=== PATIENT | female | born 1990 | race Caucasian/White ===

== ENCOUNTER → 2024-06-05 13:23 | Outpatient (REF) | payer OTHER, SELFPAY ==
--- NOTE | 2024-06-05 13:57 | PN.DIAED06 ---
Meal Plan - Gestational
- Breakfast
Gestational Diabetes Meal Plan Name: 1800 calories
Breakfast - Total Carbohydrate (grams): 30
Breakfast - Starch Carbohydrate: 1
Breakfast - Fruit Carbohydrate: 0
Breakfast - Milk Carbohydrate: 1
Breakfast - Nonstarchy Vegetables: Yes
Breakfast - Meat/Protein: 1
Breakfast - Fat: 2
- Morning Snack
Morning Snack - Total Carbohydrate (grams): 30
Morning Snack - Starch Carbohydrate: 1
Morning Snack - Fruit Carbohydrate: 0
Morning Snack - Milk Carbohydrate: 1
Morning Snack - Nonstarchy Vegetables: Yes
Morning Snack - Meat/Protein: 0.5
Morning Snack - Fat: 0
- Lunch
Lunch - Total Carbohydrate (grams): 45
Lunch - Starch Carbohydrate: 2
Lunch - Fruit Carbohydrate: 1
Lunch - Milk Carbohydrate: 0
Lunch - Nonstarchy Vegetables: Yes
Lunch - Meat/Protein: 2
Lunch - Fat: 1
- Afternoon Snack
Afternoon Snack - Total Carbohydrate (grams): 30
Afternoon Snack - Starch Carbohydrate: 1
Afternoon Snack - Fruit Carbohydrate: 1
Afternoon Snack - Milk Carbohydrate: 0
Afternoon Snack - Nonstarchy Vegetables: Yes
Afternoon Snack - Meat/Protein: 1
Afternoon Snack - Fat: 0
- Dinner
Dinner - Total Carbohydrate (grams): 45
Dinner - Starch Carbohydrate: 2
Dinner - Fruit Carbohydrate: 0
Dinner - Milk Carbohydrate: 1
Dinner - Nonstarchy Vegetables: Yes
Dinner - Meat/Protein: 2
Dinner - Fat: 2
- Evening Snack
Evening Snack - Total Carbohydrate (grams): 30
Evening Snack - Starch Carbohydrate: 1
Evening Snack - Fruit Carbohydrate: 0
Evening Snack - Milk Carbohydrate: 1
Evening Snack - Nonstarchy Vegetables: Yes
Evening Snack - Meat/Protein: 1
Evening Snack - Fat: 1
--- NOTE | 2024-06-05 14:59 | PN.DE ---
Diabetes Education
- -
Tanika is currently 28 weeks (2nd ) and presented for medical nutrition therapy. She has a 2.5 year old son and she did not have gestational diabetes during that . 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
glucose metabolism and the effects of elevated blood glucose levels on the baby during and after . We discussed her increased risk for potentially developing type 2 diabetes in the future.
Tanika was able to demonstrate a fingerstick blood glucose with the [employer] Verio meter. We reviewed the monitoring schedule and glucose targets for fasting and 2 hour post meal. I provided her with written material on managing gestational
diabetes and highlighted target blood glucose ranges. Tanika is aware of contacting Sue at [facility] to review her numbers weekly.
Tanika has a good understanding of macronutrients and label reading. I provided her with a 1800 calorie gestational meal plan and reviewed it in detail. She currently eats smaller amounts of food at each sitting due to her history of GERD. She
mentioned she sometimes wakes up in the middle of the night to eat and I recommended she eat the bedtime snack to prevent eating overnight which will impact her fasting numbers.
We discussed physical activity and Tanika has no restrictions at this time. She has started walking and increasing her activity since learning about the gestational diabetes diagnosis. She was encouraged to reach out to the office with any
questions or if she should require insulin.
== END ==
LOC: DES 13:23
PROVIDERS: ATTENDING PHYSICIAN Obstetrics & Gynecology
DX: O24.419 Gestational diabetes mellitus in pregnancy, unspecified control (principal)
CPT/HCPCS: 99078

== ENCOUNTER → 2024-06-10 10:24 | Outpatient (REF) | payer OTHER, SELFPAY | LOC: PNTC 10:24 | PROVIDERS: ATTENDING PHYSICIAN Obstetrics & Gynecology | DX: O24.419 Gestational diabetes mellitus in pregnancy, unspecified control (principal) | CPT/HCPCS: 76816 ==

== ENCOUNTER 2024-08-28 04:00 | Inpatient (IN) | payer OTHER, SELFPAY ==
[2024-08-28 04:08] VITALS: BMI 26.6
[2024-08-28 04:22] VITALS: BP 101/77
[2024-08-28 04:40] LABS: Glucose - Point of Care 111 mg/dl (70-99)
[2024-08-28 04:55] LABS: % Basophils 0.2 % (0-2); % Eosinophils 0.3 % (0-6); % Immature Granulocytes 0.7 % (0-0.5); % Lymphocytes 10.3 % (20.5-51.1); % Monocytes 5.5 % (1.7-9.3); Absolute Immature Granulocytes 0.1 10^3/uL (0-0.05); Absolute Lymphocytes 1.4 10^3/uL (1.2-3.4); Absolute Monocytes 0.7 10^3/uL (0.1-0.6); Absolute Neutrophils 10.9 10^3/uL (1.4-6.5); Hematocrit 39.7 % (37.0-47.0); Hemoglobin 13.8 g/dL (12.0-16.0); Mean Corp Hgb Conc. 34.8 g/dL (33.0-37.0); Mean Corpuscular Hgb 29.4 pg (27.0-31.0); Mean Corpuscular Volume 84.6 fL (81.0-99.0); Mean Platelet Volume 10.4 fL (7.4-10.4); Nucleated Red Blood Cells % 0 %; Platelet Count 179 10^3/uL (130-400); Red Blood Cell Count 4.69 10^6/uL (4.20-5.40); Red Cell Dist. Width 16.5 % (11.5-14.5); White Blood Cell Count 13.1 10^3/uL (4.8-10.8)
[2024-08-28] MEDS: ANCEF 10 IV ×2 (05:09→23:05)
[2024-08-28 08:38] LABS: Glucose - Point of Care 116 mg/dl (70-99)
[2024-08-28] MEDS: ANCEF 5 IV ×2 (11:25→19:35)
[2024-08-28] MEDS: LR 1000 IV ×3 (12:29→22:54)
[2024-08-28 12:41] LABS: Glucose - Point of Care 90 mg/dl (70-99)
[2024-08-28] MEDS: FENTANYL/BUPIVACAINE 100 EPIDURAL ×2 (13:21→20:18)
[2024-08-28] MEDS: SUBLIMAZE 100 MCG EPIDURAL (13:21)
[2024-08-28 16:40] LABS: Glucose - Point of Care 86 mg/dl (70-99)
[2024-08-28] MEDS: PITOCIN 30 UNITS/NSS 500 ML IV (20:20)
[2024-08-28 20:27] LABS: Glucose - Point of Care 80 mg/dl (70-99)
[2024-08-28] MEDS: BICITRA 30 ML PO (23:05)
[2024-08-28] MEDS: TYLENOL 1000 MG PO (23:05)
[2024-08-28] MEDS: ZITHROMAX INFUSION 250 IV (23:20)
[2024-08-28 23:56] LABS: Cord ABG Comment CORD BLOOD
[2024-08-28 23:57] LABS: B.E. Cord ABG -0.2 mMOL/L; HCO3 Cord ABG 24.8 mmol/L; O2 Saturation % Cord ABG 64.8 %; PCO2 Cord ABG 41 mmHg; PO2 Cord ABG 31 mmHg; pH Cord ABG 7.39
[2024-08-29] LABS: B.E. Cord ABG -2.2 mMOL/L; HCO3 Cord ABG 22.5 mmol/L; O2 Saturation % Cord ABG 65.9 %; PCO2 Cord ABG 38 mmHg; PO2 Cord ABG 32 mmHg; pH Cord ABG 7.38
--- NOTE | 2024-08-29 00:54 | OR.RPT ---
Operative Report
Operative Report
Procedure date: 08/28/2024
Preop diagnosis: IUP @39.6, category 2 tracing, GDMA1, history of prior , failed TOLAC
Postop diagnosis: same
Procedure: Repeat low transverse section
Surgeon: Cathy
Epidural: Epidural, Dr. Briseno
QBL: 780mL
Complications: none
Findings: Viable female born at 2338, Apgars 8/9, adhesions between fascia and rectus muscles, normal appearing uterus, bilateral fallopian tubes, and ovaries, bladder adhered to lower uterine segment taken down with Metzenbaum scissors and
blunt dissection, inferior extension on the left side of the hysterotomy, hysterotomy raw appearing on the left side after repair- Surgicel placed.
Velasquez catheter draining clear urine before and after the procedure
Indication: Patient is a 34yo @39.6 who presented to Labor and Delivery with complaints of contractions. She was 1cm on admission. Patient was expectantly managed and progressed to 3-4cm. She then got an epidural. After the epidural, she
spontaneously ruptured for clear fluid. She was 4cm and a forebag was artificially ruptured for clear fluid. After a few hours, her contractions had spaced out and she had not made any cervical change. Pitocin was started. After Pitocin was started,
tracing had variable decelerations with each contraction. She was repositioned and given a fluid bolus without resolution. Pitocin was stopped and the variable decelerations continued. Cervical exam remained unchanged. At this time, repeat
section was recommended. Patient had previously signed consents in the office. Ancef 2g and Azithromycin 500mg IV were ordered for antibiotic prophylaxis. Anesthesia was notified.
Procedure: Patient was taken to the operating room where epidural anesthesia was bolused and found to be adequate. 2g of Ancef and 500mg Azithromycin given for antibiotic prophylaxis. The abdomen was prepped with ChloraPrep. The patient was draped
in the normal sterile fashion. She was placed in the dorsal supine position with a left lateral tilt. A Pfannenstiel incision was made with a 10 blade and carried down to the fascia with a scalpel. Hemostasis achieved with Bovie. The fascia was
incised and dissected laterally with Lopez scissors. The superior aspect of the fascia was grasped with Mari clamps. The underlying rectus fascia was sharply dissected with Lopez scissors. In a similar fashion the inferior aspect of the fascia was
elevated with Mari clamps and the rectus muscle was dissected off with Lopez scissors. The rectus muscles were down the midline to the level of the pubic symphysis with manual dissection. The peritoneum was bluntly entered and extended
using manual traction and Metzenbaum scissors.
Velazquez retractor and bladder blade were placed revealing good visualization of the bladder. The bladder was adhered to the lower uterine segment. A bladder flap was developed and the bladder was dissected off using manual dissection and
Metzenbaum scissors. A thin lower uterine segment was noted. The lower uterine segment was incised with a scalpel. Clear fluid noted at entry into the cavity. The uterine incision was extended bluntly with lateral and upward traction.
The fetus was in cephalic presentation. The head was elevated out of the pelvis with special attention paid to avoid using the uterine incision as a fulcrum. Gentle fundal pressure was applied one the head was brought to the incision. The head
delivered through the hysterotomy and the rest of the delivered without difficulty. Delayed cord clamping was performed. Cord gases were collected. The infant was handed off to the floorperson. IV oxytocin was started to facilitate uterine
contractions. The placenta delivered with fundal massage and gentle traction. The uterus was exteriorized. Allis clamps were placed at the apices of the hysterotomy. The inside of the uterus was wiped with a lap sponge to assure complete removal of
placental membranes. Fundal massage was performed and uterus noted to be firm. There was brisk bleeding from the left side of the hysterotomy. An inferior extension was identified and repaired in a running locked fashion with 0 Vicryl. The uterine
incision was then closed with 0 Vicryl in a running locked fashion. A horizontal imbricating stitch was done on the hysterotomy. There was bleeding from the center of the hysterotomy and multiple figure of eights were placed with 0 Vicryl and 2-0
Vicryl to achieve hemostasis. Oozing noted from the serosa inferior to the hysterotomy and Bovie cautery was used to achieve hemostasis. The hysterotomy was inspected and noted to be hemostatic. The uterus was placed back in the abdomen. Blood clots
and fluid were wiped out of the abdomen and pelvis with moist laparotomy sponges. The hysterotomy was raw appearing on the left side near the extension. Surgicel was placed over the hysterotomy. The hysterotomy was examined again and noted to be
hemostatic. The bladder was inspected and noted to be intact.
The rectus muscles were inspected and noted to be hemostatic. The fascial layer was closed in a running continuous fashion using 0 Vicryl. The subcutaneous tissue was copiously irrigated and any small bleeding vessels were cauterized with Bovie
cautery. The subcutaneous tissue was reapproximated in a running continuous fashion with 2-0 Plain. The skin was closed with 4-0 Vicryl in a subcuticular fashion. The incision was covered with skin glue. The patient tolerated the procedure well. All
sponge and instrument counts were correct times two. The patient was taken to the recovery room in stable condition.
[2024-08-29] MEDS: TORADOL 15 MG IV ×4 (01:07→18:46)
--- NOTE | 2024-08-29 01:08 | HPS.HSE ---
Family Physician
-
Family Physician: Shreya Laird MD
Chief Complaint
-
contractions
History of Present Illness
HPI: Patient is a 34yo @39.6 who presented to Labor and Delivery with complaints of contractions. She has a history of one prior for non-reassuring heart tones and desires a trial of labor after section. She denied
vaginal bleeding or leakage of fluid. +FM.
complications:
- History of C/Sx1
- GBS positive
- GDMA1
PMHx: hypothyroid, migraine, insomnia
Meds: vitamin, magnesium
Surghx: C/Sx1, pilonidal cyst
All: Tdap, PCN
Socialhx: denies tobacco, etoh or illicit drug use
Famhx: non-contributory
OBHx: PLTCS for NRFHTs
labs: Blood type A+, Antibody screen negative, Rubella immune, RPR non reactive, NIPT negative, HbsAg/HIV/Hep B/Hep C-negative, GCCT - negative, GBS positive, elevated 1hr
Medical History
Past Medical History
Past Medical History: Reports Hypothyroidism
Past Surgical History: Reports
Additional Past Surgical History:
pilonidal cyst
Social History
Tobacco: Non-smoker
Alcohol: None
Drug: None
Family History
Family History: Not pertinent
Allergies / Home Medications
Allergies reflects when Allergies were last updated in [facility].
Home Medications with original date entered in [facility]
Allergy/Medication List:
All: PCN, Tdap
Meds: PNV, magnesium
Review of Systems
-
A 12 point ROS was completed and negative except as noted: Yes
Physical Exam
Vital Signs
Vital Signs
Temp Pulse Resp BP
97.6 F 92 18 101/77
08/28/24 04:22 08/28/24 04:22 08/28/24 04:22 08/28/24 04:22
Physical Exam
General: Well Developed and Well Nourished
HEENT: NormoCephalic
Respiratory: Non Labored Respirations
Cardiac: Regular Rhythm
Skin: Warm and Dry
Neuro: Awake and Alert
Psych: Calm
Laboratory Results
-
08/28/24 04:43
Impression/Plan
-
IMPRESSION:
Patient is a 34yo @39.6 labor, TOLAC, GDMA1, category 2 tracing
PLAN:
Patient was admitted and expectantly managed. She spontaneously ruptured for clear fluid and made change to 4cm. After a few hours, cervical exam remained unchanged and contractions had spaced out, so Pitocin was recommended. After Pitocin was
started, FHT was category 2 with variable decelerations with each contraction. She was repositioned and fluid bolus was given, however variable decelerations did not resolve. Pitocin was turned off and variables continued. Cervical exam was
unchanged. At this time, repeat section was recommended for category 2 tracing. Consents were previously signed in the office. Ancef 2g and azithromycin 500mg were ordered for antibiotic prophylaxis. Anesthesia was notified.
--- NOTE | 2024-08-29 07:47 | W.PN.ANS.POP ---
Anesthesia Post Operative
- Anesthesia Post Op Note
Vital Signs Stable-See Nursing Note: Yes
Airway Patent: Yes
Adequate Pain Control: Yes
Change in Mental Status: No
Current Postoperative Nausea & Vomiting: No
Anesthesia Complications: No
General Anesthetic Recall: No
Unplanned Admission: No
Post Op Hydration Adequate: Yes
[2024-08-29] MEDS: PROTONIX 40 MG PO (08:35)
[2024-08-29] MEDS: FEOSOL 325 MG PO (08:35)
[2024-08-29] MEDS: PRENATAL PLUS PO (08:46)
[2024-08-29] MEDS: PERCOCET 5/325 1 TABLET PO ×3 (09:41→21:35)
[2024-08-29] MEDS: SENOKOT-S 1 TABLET PO (09:41)
[2024-08-29 10:17] LABS: % Basophils 0.2 % (0-2); % Immature Granulocytes 0.7 % (0-0.5); % Lymphocytes 4.3 % (20.5-51.1); % Monocytes 2.7 % (1.7-9.3); % Neutrophils 92.1 % (42.2-75.2); Absolute Immature Granulocytes 0.1 10^3/uL (0-0.05); Absolute Lymphocytes 0.6 10^3/uL (1.2-3.4); Absolute Monocytes 0.4 10^3/uL (0.1-0.6); Absolute Neutrophils 13.2 10^3/uL (1.4-6.5); Hematocrit 34.5 % (37.0-47.0); Hemoglobin 11.5 g/dL (12.0-16.0); Mean Corp Hgb Conc. 33.3 g/dL (33.0-37.0); Mean Corpuscular Hgb 29.8 pg (27.0-31.0); Mean Corpuscular Volume 89.4 fL (81.0-99.0); Mean Platelet Volume 10.6 fL (7.4-10.4); Nucleated Red Blood Cells % 0 %; Platelet Count 164 10^3/uL (130-400); Red Blood Cell Count 3.86 10^6/uL (4.20-5.40); Red Cell Dist. Width 16.9 % (11.5-14.5); White Blood Cell Count 14.3 10^3/uL (4.8-10.8)
[2024-08-30] MEDS: MOTRIN 600 MG PO ×4 (01:08→21:26)
[2024-08-30] MEDS: PERCOCET 5/325 1 TABLET PO ×3 (03:40→18:30)
[2024-08-30] MEDS: PRENATAL PLUS 1 TABLET PO (08:37)
[2024-08-30] MEDS: FEOSOL 325 MG PO (08:37)
[2024-08-30] MEDS: SENOKOT-S 1 TABLET PO (08:37)
[2024-08-30] MEDS: PROTONIX 40 MG PO (08:37)
[2024-08-31] MEDS: MOTRIN 600 MG PO ×2 (03:29→09:52)
--- NOTE | 2024-08-31 07:56 | W.DS.TRANS ---
DC Summary - Chemist Physical
-
Discharge Instructions:
Discharge Diagnosis/Procedures rcs
Instructions:
Stand-Alone Forms: LDRP Delivery
Changes to Home Medications: No
Discharge Medications:
DC Medications w/original date entered in [facility]
vit no.95-ferrous fumarate 28 mg-folic acid 800 mcg tablet () 1 ea PO DAILY Supplement 11/05/21
ferrous sulfate 325 mg (65 mg iron) tablet (iron) 325 mg PO DAILY Supplement 08/28/24
omeprazole 20 mg capsule,delayed release 20 mg PO DAILY Gastrointestinal Issue 08/28/24
ibuprofen 600 mg tablet 600 mg PO Q6HPRN PRN cramps #90 tabs 08/31/24
oxycodone-acetaminophen 5 mg-325 mg tablet 1 tab PO Q4HPRN PRN moderate pain #7 tabs 08/31/24
Home Medication Changes
Pending Results: No
Total time spent discharging patient (in min): 20
[2024-08-31] MEDS: PERCOCET 5/325 1 TABLET PO (08:01)
[2024-08-31] MEDS: SENOKOT-S 1 TABLET PO (08:01)
[2024-08-31] MEDS: PROTONIX 40 MG PO (08:01)
[2024-08-31] MEDS: FEOSOL 325 MG PO (08:16)
[2024-08-31] MEDS: PRENATAL PLUS PO (08:17)
[2024-09-03 14:57] LABS: Syphilis/T. pallidum Ab Reflex Negative (Negative)
== END 2024-08-31 11:15 | disposition home or self-care (01) | DRG 788 ==
LOC: LDRP 04:00
PROVIDERS: Student in an Organized Health Care Education/Training Program; ADMITTING PHYSICIAN Obstetrics & Gynecology; FAMILY PHYSICIAN Emergency Medicine
PROC: 10D00Z1 Extraction of Products of Conception, Low, Open Approach (ICD-10-PCS; 2024-08-29)
DX: O34.211 Maternal care for low transverse scar from previous cesarean delivery (principal); O24.420 Gestational diabetes mellitus in childbirth, diet controlled; O76 Abnormality in fetal heart rate and rhythm complicating labor and delivery; O99.824 Streptococcus B carrier state complicating childbirth; Z3A.39 39 weeks gestation of pregnancy; Z37.0 Single live birth
CPT/HCPCS: 36415; 82803; 82962; 85025; 86780; 86850; 86900; 86901